=== PATIENT | female | born 2000 | race Hispanic/Latino ===

== ENCOUNTER 2023-01-17 20:24 | Observation (INO) | payer OTHER ==
[~2023-01-17] VITALS: Ht 160 cm; Wt 78.5 kg
[2023-01-17 20:37] VITALS: BP 127/68; PULSE 113; RESP 18
[2023-01-17 21:31] LABS: ADD UA MICROSCOPIC YES; APPEARANCE,URINE CLEAR (CLEAR); BILIRUBIN,URINE NEGATIVE (NEGATIVE); COLOR,URINE LIGHT-YELLOW (YELLOW); GLUCOSE, URINE (UA) NEGATIVE (NEGATIVE); KETONES,URINE NEGATIVE (NEGATIVE); LEUKOCYTE ESTERASE ,URINE 25 Leu/uL (NEGATIVE); NITRATE,URINE NEGATIVE (NEGATIVE); OCCULT BLOOD,URINE NEGATIVE (NEGATIVE); PH,URINE 6.5 (5.0-8.0); PROTEIN,URINE 10 mg/dL (NEGATIVE); UROBILINOGEN,URINE 0.2 mg/dL (0.2-1.0)
[2023-01-17 21:43] LABS: AMPHET/METH SCREEN,URINE NEGATIVE (NEGATIVE); BARBITURATE SCREEN, URINE NEGATIVE (NEGATIVE); BENZODIAZEPINES SCREEN,URINE NEGATIVE (NEGATIVE); CANNABINOID SCREEN,URINE NEGATIVE (NEGATIVE); COCAINE SCREEN,URINE NEGATIVE (NEGATIVE); OPIATE SCREEN,URINE NEGATIVE (NEGATIVE); PHENCYCLIDINE SCREEN,URINE NEGATIVE (NEGATIVE)
[2023-01-17 21:48] LABS: BACTERIA,URINE MOD /HPF (None Seen); MUCUS,URINE RARE LPF (None Seen); RBC,URINE 0-1 /HPF (0-1); SQUAMOUS EPITHELIAL CELL,UR FEW /HPF (0-2)
[2023-01-17] MEDS ORDERED: LACTATED RINGERS 1000ML IV ONE (22:00)
[2023-01-17] MEDS ORDERED: TERBUTALINE SULFATE VIAL 1MG/ML SQ SCH (22:00)
[2023-01-17] MEDS: TERBUTALINE SULFATE VIAL 1MG/ML SQ ONE ×2 (22:03→22:54)
[2023-01-18] MEDS ORDERED: MAGNESIUM 4GM PREMIX 100ML 100 ML IV SCH (00:30)
[2023-01-18] MEDS ORDERED: CALCIUM GLUC 1GM/10ML VIAL IV PRN (00:30)
[2023-01-18] MEDS ORDERED: MAGNESIUM SULFATE 40GM/1000ML 1,000 ML IV SCH (00:30)
[2023-01-18] MEDS: CLINDAMYCIN IVPB 600MG/50ML 50 ML IV SCH ×3 (00:50→12:01)
[2023-01-18] MEDS: LACTATED RINGERS 1000ML 1,000 ML IV SCH ×2 (00:51→12:02)
[2023-01-18] MEDS ORDERED: ACETAMINOPHEN 500 MG TABLET ONE (06:52)
[2023-01-18] MEDS: ACETAMINOPHEN 500 MG TABLET PO PRN ×2 (07:03→15:11)
== END 2023-01-18 18:30 | disposition home or self-care (01) ==
LOC: EDH 20:24 → LDH 21:02
PROVIDERS: ADMIT Obstetrics & Gynecology; ATTEND Obstetrics & Gynecology
DX: O60.03 Preterm labor without delivery, third trimester (principal); O99.891 Other specified diseases and conditions complicating pregnancy; M54.50 Low back pain, unspecified; Z3A.36 36 weeks gestation of pregnancy; Z79.899 Other long term (current) drug therapy
CPT/HCPCS: 96372; 80305; 81001; 96365; 96366; 96368; G0378 ×21; J3105; J7120; J3475 ×2; J3490 ×3; A4600; A4510; A4314; 96360; 96361